=== PATIENT | male | born 1950 | race Caucasian/White ===

== ENCOUNTER → 2016-10-10 10:14 | Day surgery (SDC) | payer MEDICARE ==
--- NOTE | 2016-10-07 17:34 | HP ---
HISTORY AND PHYSICAL: DATE OF ADMISSION: 10/10/16 AGE: 66 years, male. ADMITTING DIAGNOSES: 1. Gross hematuria. 2. Bilateral renal calculi. 3. Calculus, left proximal ureter. PLANNED PROCEDURE: Shockwave lithotripsy of left renal calculus and left stent insertion. SURGEON: Pastor Blackwell MD. HISTORY OF PRESENT ILLNESS: Moises Woodard is a 66-year-old gentleman who has had gross hematuria for the last several days. He has a history of recurrent renal calculi and was noted to have bilateral renal calculi in addition to a 3 mm calculus in the left proximal ureter. PAST MEDICAL HISTORY: Significant for: 1. Gout. 2. Hypertension. 3. Kidney stones. PAST SURGICAL HISTORY: Significant for cervical spine surgery. MEDICATIONS: 1. Allopurinol 100 mg 2 tablets daily. 2. Metoprolol 100 mg a day. 3. Valsartan-hydrochlorothiazide 160-12.5, 1 tablet daily. 4. Multiple vitamins and supplements. ALLERGIES: No known drug allergies. FAMILY HISTORY: Positive for kidney stones (father and brother). SMOKING HISTORY: He is a nonsmoker. PHYSICAL EXAMINATION GENERAL: Reveals a pleasant healthy appearing middle-aged gentleman. VITAL SIGNS: Blood pressure is 138/90, pulse 64 per minute, temperature 98.1. LUNGS: Clear bilaterally. CARDIOVASCULAR: Regular rate and rhythm. S1 and S2. ABDOMEN: Soft with mild bilateral flank tenderness. IMPRESSION: A 66-year-old gentleman with gross hematuria and bilateral renal calculi and a calculus in the left proximal ureter. PLAN: The plan for 10/10/16 is for shockwave lithotripsy of the left renal calculus and left stent insertion. He will require treatment of the right renal calculi at a later date also. CC: Dr. Polk; Pastor Blackwell MD* [id number]/[facility] #: [id number] [facility]
[~2016-10-10 10:14] MED LIST: Furosemide IV* 10 MG/ML 2 ML VIAL (20 MG) ONE; Iohexol 180 (CONTRAST) 10 ML SDV IV ONE; Lidocaine 2% PF* 5 ML VIAL ONE; Midazolam* 1 MG/ML 2 ML VIAL (2 MG) ONE; Propofol* 10 MG/ML 20 ML BTL IV PUSH ONE; cefTRIAXone(*) 2 GM ADDV.VIAL IVPB ONE; fentaNYL* 50 MCG/ML 2 ML VIAL (100 MCG VIAL) ONE
--- NOTE | 2016-10-10 11:07 | RAD ---
INDICATION: Lithotripsy, renal calculi. COMPARISON: Comparison is made with a prior KUB series and CT of the abdomen and pelvis from October 07, 2016. TECHNIQUE: Frontal supine films of the abdomen were obtained. FINDINGS: The small bowel and colon appear nondistended. There are multiple bilateral renal calculi measuring up to 7 mm on the right side and 8 mm on the left side. The previously noted possible faint left ureteral calculus is not visualized. IMPRESSION: BILATERAL RENAL CALCULI.
[2016-10-10 17:50] VITALS: BP 140/86
--- NOTE | 2016-10-11 10:33 | OP ---
DATE OF OPERATION: 10/10/16 - SDS DATE OF : [birth year] - AGE: 66 years, SEX: Male. SURGEON: Pastor Blackwell MD ANESTHESIOLOGIST: Julio Heaton DO ANESTHESIA: General. PRE-OP DIAGNOSIS: Bilateral renal calculi. POST-OP DIAGNOSIS: Bilateral renal calculi. OPERATIVE PROCEDURE: Shock wave lithotripsy of left renal calculi. COMPLICATIONS: None. POSTOPERATIVE CONDITION: Stable. INDICATIONS: Moises Woodard is a 66-year-old gentleman who was evaluated for gross hematuria. This turned out to be secondary to a small calculus in the left proximal ureter, which he subsequently passed. He was also noted to have bilateral renal calculi and is now being brought in for shock wave lithotripsy of left renal calculi. At some point in the next month or two, he will require treatment of the right renal calculi also. I have discussed the procedure of lithotripsy including possible risks of bleeding, infection, incomplete fragmentation, and possible injury to the kidney in detail. DESCRIPTION OF PROCEDURE: After induction of general anesthesia, the patient was placed on the lithotripsy table in a supine position. There were two calculi in the [id number] pole of the left kidney and these were targeted with the fluoroscopic imaging and shock wave lithotripsy was commenced at a rate of 60 shocks per minute. After the initial 300 shocks, there was pause in lithotripsy for several minutes to minimize any potential trauma to the kidney. Lithotripsy was then resumed and periodic imaging revealed good localization and fragmentation and a total of 1800 shocks were administered. The patient tolerated the procedure satisfactorily and was transferred back to the recovery area in stable condition. CC: Dr. Polk* [id number]/[facility] #: [id number] [facility] SYSTEM[facility]
== END | disposition home or self-care (01) ==
LOC: OR 10:14
PROVIDERS: ATTEND Urology
DX: N20.0 Calculus of kidney (principal); R31.0 Gross hematuria; I10 Essential (primary) hypertension
CPT/HCPCS: 74000; J0696; J1940; J2250; J2704; J3010

== ENCOUNTER 2017-10-11 11:17 | Observation (INO) | payer MEDICARE ==
--- OUTSIDE RECORDS SUMMARY | 2017-10-11 11:43 | XMS REPORT ---
:1950 External Reference #:[id number] Author Organization [facility] Address [address] [address] Phone [phone] Care Team Providers Name Role Phone Rocky Polk MD Primary Care Physician Unavailable Payers Type Date Identification Numbers Payment Provider Subscriber Medicare Primary Policy Number: [id number] Medicare Edna Woodard PayID: [id number] [address] [place] [address] Medigap Part B Expires: 2016 Policy Number: Medicaid Edna Woodard [id number] Group Name: 1 [address] PayID: [id number] [place] [address] Commercial Effective: 2015 Policy Number: Rigoberto Woodard [id number] Expires: 2016 Group Name: [id number] [address] PayID: [id number] [place] [address] Problems Date Description Provider Status Onset: 01/06/2016 Disturbance in sleep behavior Darek Obando M.D. Active Onset: 02/05/2016 Gout Rocky Polk M.D. Active Onset: 04/11/2016 Obstructive sleep apnea syndrome Nat Henry MD Active Onset: 08/24/2016 Obesity Nat Henry MD Active Onset: 10/04/2016 Hematuria syndrome Rocky Polk M.D. Active Onset: 10/06/2016 Dyspnea Rocky Polk M.D. Active Onset: 10/20/2016 Essential hypertension Rocky Polk M.D. Active Onset: 10/20/2016 Kidney stone Rocky Polk M.D. Active Onset: 03/14/2017 Disorder of skin AND/OR subcutaneous Rocky Polk M.D. Active tissue Onset: 10/20/2016 Shoulder joint pain Rocky Polk M.D. Active Onset: 10/20/2016 Low back pain Rocky Polk M.D. Active Family History Date Family Member(s) Problem(s) Comments General Hypertension Father Hypertension Mother due to Leukemia () Mother Leukemia Siblings 1 hypertension Siblings Brother w/"blood issues" Siblings 2 Social History Type Date Description Comments Marital Status Lives With Family Occupation Disabled Cigarette Use Never Smoked Cigarettes ETOH Use 04/15/2016 Denies alcohol use Smoking Patient has never smoked Recreational Drug Use Denies Drug Use Daily Caffeine Does Not Consume Caffeine Exercise Type/Frequency Exercises regularly General Hx Text Do you follow up special diet : no Do you have problems with snoring, daytime fatigue: CPAP Machine care followed by Dr. Henry [facility] Provider, daytime fatigue- no. Allergies, Adverse Reactions, Alerts Date Description Reaction Status Severity Comments 11/20/2015 NKDA active Medications Medication Date Status Form Strength Qnty SIG Indications Ordering Provider Tony ac 11/24 Active Syrup 100-10mg/ 118ml take 5-10 J01.90 Luis 5ML milliliters EDEL Paula every 4-6 hours as needed for cough. Areds 08/23 Active as directed [place] 08/12 Active 1 cap po Luis Reaver daily Chai, [employer] & Quercetin Allopurinol 02/04 Active Tablets 100mg 180ta 2 by mouth M10.9 Rocky /2015 bs every day Jay Polk Metoprolol 12/08 Active Tablets ER 100mg 30tab 1 by mouth I10 [place] Succinate ER /2015 24HR s every day Jay Polk Calcium 11/19 Active Tablets ER 600-40-50 1 by mouth [place] 1200+D3 24HR 0mg-mg-Un every day Felicitas de guzman M.D. Turmeric Active Capsules 500mg 1 by mouth Unknown Curcumin every day Complex Vitamin B Active Tablets 1 by mouth Unknown Complex / every day [place] Boost Active Powder 1 scoop daily Unknown Preservision Active Capsules Areds 2 take one cap Unknown Areds 2 in the moring and one cap in the evening Mucinex Active prn Unknown Multi-Symptom / Probiotic Active Capsules 1 by mouth Unknown every day Riley 3, Epa, Active 1 cap po Unknown Dha daily Acetaminophen Active Tablets 500mg 2 tabs 3 Unknown / times daily [place] Brain Active 1 cap po Unknown Boost ( Memory daily Function Aid) Vitamin D3 Active 1/ Unknown Complete dropperfull robe [place] Barely Active Powder 1 scoop daily Unknown Cpap Active Device used at home Unknown Stone Free Active Unknown Valsartan-Hydr Active Tablets 160-12.5m 30tab 1 by mouth [place] ochlorothiazid /0000 g s every day Felicitas morgan M.D. Valsartan-Hydr Active Tablets 160-12.5m 30tab 1 by mouth Rocky ochlorothiazid /0000 g s every day Felicitas morgan M.D. Ibuprofen 01/19 Hx Tablets 600mg 90tab three times a M25.561 Rocky /2016 s day Felicitas Santana M.D. 03/14 Ventolin HFA 12/16 Hx Aerosol 108(90Bas 8gm 2 puffs by Luis /2016 eddie) mouth four EDEL Paula - mcg/Act times a day 01/06 as needed Doxycycline 11/24 Hx Capsules 100mg 20cap one tablet J01.90 Luis Hyclate s twice daily EDEL Paula - for 10 days. 12/04 Ciprofloxacin 10/06 Hx Tablets 500mg 20tab twice a day ( R31.9 Rocky HCL s Finished) Felicitas Santana M.D. 11/21 Lignans-Flax 08/12 Hx daily Luis Augustine Chai [employer] - 03/14 Amoxicillin/Cl 08/12 Hx Tablets 875-125mg 20tab take one J01.90 Luis avulanate s tablet q12 EDEL Paula Potassium - hours for 10 Benzonatate 08/12 Hx Capsules 200mg 30cap by mouth J01.90 Luis s three times a Chai, [employer] - day as needed 08/12 for cough Fluticasone 08/12 Hx Suspension 50mcg/Act 16gm 2 sprays each J01.90 Luis Propionate nostril qd. x Chai, [employer] - 2 weeks 03/14 Tussionex 08/12 Hx Suer 10-8mg/5M 115ml 5ml twice J01.90 Luis Pennkinetic L daily as Chia, [employer] Extended - needed for Release 11/24 cough Tdap 06/30 Hx 1unit 1 dose [place] ania intramuscular Felicitas Santana M.D. 08/12 Colcrys 04/15 Hx Tablets 0.6mg 31tab take 2 M10.9 Jose G s tablets by Noemy Ch, - mouth on day M.D.,[facility] 05/11 1 then tablet daily Doxycycline 04/15 Hx Capsules 100mg 14cap twice a day J20.9 Jose G Hyclate s by mouth Noemy Ch, - M.D.,[facility] 04/22 Benzonatate 04/15 Hx Capsules 200mg 30cap by mouth J20.9 Jose G s three times a Noemy Ch, - day as needed M.D.,[facility] 05/11 Cheratussin ac 04/01 Hx Syrup 100-10mg/ 118ml take 5-10 J06.9 Luis 5ML milliliters Chai, [employer] - every 4-6 04/08 hours needed for cough. Azelastine HCL 04/01 Hx Solution 0.1% 30ml spray 2 spray J06.9 Luis (Nasal) in each Chai, [employer] - nostril two 03/14 times a day as needed Azithromycin 04/01 Hx Tablets 250mg 6tabs 2 tabs by J06.9 Luis mouth every Chai, [employer] - day x1 day, 1 04/06 tab by mouth /2015 every day x 4 days Amlodipine 02/01 Hx Tablets 10mg 30tab 1 by mouth [place] Besylate s every day Felicitas Santana M.D. 03/14 Prednisone 01/25 Hx Tablets 10mg 20tab 5tabx 2days,4 M25.562 [place] s tabx1 day Madaira - 3tabJay navarro 02/04 day,2tabx day,1tabxday. Hydrocodone-Ac 01/25 Hx Tablets 5-325mg 20tab 1 tab every M25.562 [place] etamin s 12h as needed Felicitas Santana M.D. 05/11 Allopurinol 12/30 Hx Tablets 100mg 90tab 1 by mouth Rocky s every day Felicitas Santana M.D. 04/15 Colchicine 12/24 Hx Tablets 0.6mg 10tab 2 tabnow then M10.9 s twice daily Felicitas Santana M.D. 02/04 Amlodipine 00 Hx Tablets 10mg 30tab 1 by mouth [place] Bes s every day Felicitas Santana M.D. 12/08 Fish Oil Hx Capsules 1000mg-Un 1 capsule Unknown /0000 it - 05/11 Magnesium 00 Hx Capsules 300mg otc once a Unknown /0000 day - 12/08 Calcium 600+D Hx Tablets 600-200mg 1 by mouth Unknown /0000 -Unit twice a day - 12/08 Flaxseed Oil 00 Hx Capsules 1000mg 1 by mouth Unknown /0000 every day - 05/11 Biola 00/ Hx 1 tablet po Unknown Trim And Fit /0000 as needed - 03/14 Coricidin HBP 00/ Hx Misc prn Unknown Day & /0000 Nightmulti-Sym - ptom Cold 03/14 Medications Administered in Office Medication Date Status Form Strength Qnty SIG Indications Ordering Provider Technetium TC Administered Injection Bhargav Villegas 99M 017 DO Frank Tetrofosmin, FACC Per Unit Dose Up To 40 Millicuries Immunizations CPT Code Status Date Vaccine Reaction Lot # [id number] Given 07/07/2016 Tdap - [id number] Tetanus/Diptheria/Acellular Pertussis [id number] Given 04/15/2016 Influenza Virus Vaccine, no reaction, no [id number] Quadrivalent, Split, complaints, pt tolerated Preservative Free well Vital Signs Date Vital Result Comment 10/11/2017 Height 72 inches 6'0" Weight 239.50 lb Heart Rate 63 /min BP Systolic Sitting 130 mmHg BP Diastolic Sitting 80 mmHg Body Temperature 97.4 F O2 % BldC Oximetry 96 % BMI (Body Mass Index) 32.5 kg/m2 09/04/2017 Weight 220.00 lb Heart Rate 54 /min BP Systolic 132 mmHg BP Diastolic 80 mmHg Body Temperature 97.7 F O2 % BldC Oximetry 96 % 05/17/2017 Height 72 inches 6'0" Weight 225.00 lb Heart Rate 58 /min BP Systolic 120 mmHg BP Diastolic 76 mmHg Body Temperature 98.0 F O2 % BldC Oximetry 99 % BMI (Body Mass Index) 30.5 kg/m2 03/14/2017 Height 72 inches 6'0" Weight 237.00 lb Heart Rate 60 /min BP Systolic 134 mmHg BP Diastolic 82 mmHg Body Temperature 97.5 F O2 % BldC Oximetry 96 % BMI (Body Mass Index) 32.1 kg/m2 01/19/2017 Weight 241.25 lb Heart Rate 59 /min BP Systolic Sitting 140 mmHg BP Diastolic Sitting 82 mmHg Body Temperature 98.3 F O2 % BldC Oximetry 97 % 01/10/2017 Height 72 inches 6'0" Weight 243.00 lb Heart Rate 72 /min BP Systolic Sitting 130 mmHg BP Diastolic Sitting 86 mmHg Respiratory Rate 16 /min O2 % BldC Oximetry 96 % room air BMI (Body Mass Index) 33.0 kg/m2 11/24/2016 Heart Rate 63 /min BP Systolic Sitting 132 mmHg BP Diastolic Sitting 82 mmHg Body Temperature 98.2 F O2 % BldC Oximetry 95 % 11/21/2016 Weight 247.00 lb Heart Rate 66 /min BP Systolic Sitting 142 mmHg BP Diastolic Sitting 88 mmHg Respiratory Rate 15 /min Body Temperature 98.8 F O2 % BldC Oximetry 97 % 11/02/2016 Height 72 inches 6'0" Weight 247.00 lb Heart Rate 73 /min Respiratory Rate 16 /min Pain Level 0 O2 % BldC Oximetry 96 % BMI (Body Mass Index) 33.5 kg/m2 10/21/2016 Height 71.25 inches 5'11.25" Weight 246.00 lb without shoes Heart Rate 64 /min BP Systolic 160 mmHg Rue lg cuff BP Diastolic 100 mmHg Rue lg cuff BP Systolic Sitting 160 mmHg Lue lg cuff BP Diastolic Sitting 110 mmHg Lue lg cuff BP Systolic Standing 152 mmHg Lue lg cuff BP Diastolic Standing 100 mmHg Lue lg cuff Respiratory Rate 16 /min BMI (Body Mass Index) 34.1 kg/m2 Ejection Fraction 55-60% date 01/04/2016 ECHO 10/20/2016 Weight 248.50 lb Heart Rate 100 /min BP Systolic Sitting 110 mmHg BP Diastolic Sitting 86 mmHg Body Temperature 97.7 F O2 % BldC Oximetry 96 % 10/06/2016 Weight 248.00 lb Heart Rate 66 /min BP Systolic Sitting 132 mmHg BP Diastolic Sitting 80 mmHg Body Temperature 98.1 F O2 % BldC Oximetry 97 % 10/04/2016 Weight 247.50 lb Heart Rate 66 /min BP Systolic Sitting 138 mmHg BP Diastolic Sitting 88 mmHg Body Temperature 98.3 F O2 % BldC Oximetry 96 % 09/13/2016 Weight 246.38 lb Heart Rate 67 /min BP Systolic Sitting 114 mmHg BP Diastolic Sitting 70 mmHg Body Temperature 98.1 F O2 % BldC Oximetry 97 % 08/24/2016 Weight 242.00 lb Heart Rate 72 /min BP Systolic Sitting 134 mmHg BP Diastolic Sitting 80 mmHg Respiratory Rate 14 /min O2 % BldC Oximetry 97 % 08/12/2016 Weight 246.00 lb Heart Rate 80 /min BP Systolic Sitting 132 mmHg BP Diastolic Sitting 88 mmHg Respiratory Rate 16 /min Body Temperature 98.1 F O2 % BldC Oximetry 94 % 05/24/2016 Height 71 inches 5'11" Weight 234.00 lb Heart Rate 62 /min BP Systolic 132 mmHg BP Diastolic 85 mmHg Respiratory Rate 14 /min O2 % BldC Oximetry 98 % BMI (Body Mass Index) 32.6 kg/m2 05/11/2016 Height 71 inches 5'11" Weight 234.00 lb Heart Rate 79 /min BP Systolic 136 mmHg BP Diastolic 83 mmHg Body Temperature 98.2 F O2 % BldC Oximetry 97 % BMI (Body Mass Index) 32.6 kg/m2 04/15/2016 Weight 228.00 lb Heart Rate 69 /min BP Systolic Sitting 133 mmHg BP Diastolic Sitting 86 mmHg Body Temperature 98.5 F O2 % BldC Oximetry 97 % 04/11/2016 Height 71 inches 5'11" Weight 227.00 lb Heart Rate 71 /min BP Systolic Sitting 130 mmHg BP Diastolic Sitting 76 mmHg Respiratory Rate 16 /min O2 % BldC Oximetry 96 % BMI (Body Mass Index) 31.7 kg/m2 04/01/2016 Weight 221.00 lb with shoes Heart Rate 80 /min BP Systolic Sitting 122 mmHg BP Diastolic Sitting 74 mmHg Body Temperature 97.7 F O2 % BldC Oximetry 98 % 02/05/2016 Weight 220.00 lb Heart Rate 77 /min BP Systolic Sitting 119 mmHg BP Diastolic Sitting 73 mmHg Body Temperature 99.7 F 01/26/2016 Height 71 inches 5'11" Weight 221.25 lb Heart Rate 60 /min BP Systolic Sitting 120 mmHg BP Diastolic Sitting 82 mmHg Respiratory Rate 14 /min Body Temperature 98.6 F Pain Level 4 Lle BMI (Body Mass Index) 30.9 kg/m2 01/06/2016 Height 71 inches 5'11" Weight 223.12 lb Heart Rate 65 /min BP Systolic Sitting 128 mmHg BP Diastolic Sitting 76 mmHg Respiratory Rate 14 /min O2 % BldC Oximetry 98 % BMI (Body Mass Index) 31.1 kg/m2 Neck Circumference in inches 16.5 12/25/2015 Height 71 inches 5'11" Weight 229.00 lb Heart Rate 82 /min BP Systolic Sitting 124 mmHg BP Diastolic Sitting 80 mmHg BMI (Body Mass Index) 31.9 kg/m2 12/09/2015 Height 71 inches 5'11" Weight 229.00 lb Heart Rate 88 /min BP Systolic Sitting 120 mmHg BP Diastolic Sitting 78 mmHg Body Temperature 99.7 F O2 % BldC Oximetry 97 % BMI (Body Mass Index) 31.9 kg/m2 11/20/2015 Height 71 inches 5'11" Weight 224.00 lb Heart Rate 77 /min BP Systolic Sitting 143 mmHg BP Diastolic Sitting 84 mmHg Body Temperature 97.5 F BMI (Body Mass Index) 31.2 kg/m2 Results Test Date Test Result H/L Range Note Comp Metabolic Panel 02/28/2017 Sodium 141 mmol/L 133-145 Potassium 3.8 mmol/L 3.5-5.0 Chloride 106 mmol/L 101-111 Co2 Carbon Dioxide 30 mmol/L 22-32 Anion Gap 5 mmol/L 2-11 Glucose 100 mg/dL 70-100 Blood Urea Nitrogen 21 mg/dL 6-24 Creatinine 1.00 mg/dL 0.67-1.17 BUN/Creatinine Ratio 21.0 High 8-20 Calcium 9.1 mg/dL 8.6-10.3 Total Protein 6.8 g/dL 6.4-8.9 Albumin 4.3 g/dL 3.2-5.2 Globulin 2.5 g/dL 2-4 Albumin/Globulin Ratio 1.7 1-3 Total Bilirubin 0.50 mg/dL 0.2-1.0 Alkaline Phosphatase 68 U/L 34-104 Alt 30 U/L 7-52 Ast 22 U/L 13-39 Egfr Non- 75.2 >60 Egfr 96.7 >60 1 Lipid Profile (Trig/Chol/HDL) 02/28/2017 Triglycerides 119 mg/dL 2 Cholesterol 116 mg/dL 3 HDL Cholesterol 34.2 mg/dL 4 LDL Cholesterol 58 mg/dL 5 Laboratory test finding 10/21/2016 B-Type Natriuretic Peptide 17 pg/mL 6 BNP Laboratory test finding 10/07/2016 Surgical Pathology SEE RESULT BELOW 7 Stone Analysis 10/07/2016 Kidney Stone Source Passed Stone Kidney Stone 1st Constituent See Comment 8 Kidney Stone 2nd Constituent See Comment 9 Basic Metabolic Panel 10/06/2016 Sodium 139 mmol/L 133-145 Potassium 3.9 mmol/L 3.5-5.0 Chloride 101 mmol/L 101-111 Co2 Carbon Dioxide 32 mmol/L 22-32 Anion Gap 6 mmol/L 2-11 Glucose 82 mg/dL 70-100 Blood Urea Nitrogen 15 mg/dL 6-24 Creatinine 1.00 mg/dL 0.67-1.17 BUN/Creatinine Ratio 15.0 8-20 Calcium 10.6 mg/dL High 8.6-10.3 Egfr Non- 75.2 >60 Egfr 96.7 >60 10 Inr/Protime 10/06/2016 Inr 0.94 0.89-1.11 CBC Auto Diff 10/06/2016 White Blood Count 6.6 10^3/uL 3.5-10.8 Red Blood Count 5.00 10^6/uL 4.0-5.4 Hemoglobin 15.7 g/dL 14.0-18.0 Hematocrit 46 % 42-52 Mean Corpuscular Volume 92 fL 80-94 Mean Corpuscular Hemoglobin 31 pg 27-31 Mean Corpuscular HGB Conc 34 g/dL 31-36 Red Cell Distribution Width 14 % 10.5-15 Platelet Count 221 10^3/uL 150-450 Mean Platelet Volume 9 um3 7.4-10.4 Abs Neutrophils 4.4 10^3/uL 1.5-7.7 Abs Lymphocytes 1.4 10^3/uL 1.0-4.8 Abs Monocytes 0.7 10^3/uL 0-0.8 Abs Eosinophils 0.2 10^3/uL 0-0.6 Abs Basophils 0.1 10^3/uL 0-0.2 Abs Nucleated RBC 0 10^3/uL Granulocyte % 66.1 % 38-83 Lymphocyte % 20.5 % Low 25-47 Monocyte % 9.9 % High 1-9 Eosinophil % 2.4 % 0-6 Basophil % 1.1 % 0-2 Nucleated Red Blood Cells % 0 Laboratory test finding 10/04/2016 Cytology Non-Cma SEE RESULT BELOW 11 Urinalysis Profile 10/04/2016 Urine Color Yellow Urine Appearance Cloudy Urine Specific [place] 1.008 Low 1.010-1.030 Urine pH 7.0 5-9 Urine Urobilinogen Negative Negative Urine Ketones Negative Negative Urine Protein Negative Negative Urine Leukocytes Negative Negative Urine Blood 3+ Negative Urine Nitrite Negative Negative Urine Bilirubin Negative Negative Urine Glucose Negative Negative Urine White Blood Cell Absent Absent Urine Red Blood Cell 3+(>10/hpf) Absent Urine Bacteria Absent Absent Ua Routine 10/04/2016 Ua Specific [place] 1000 Ua PH 7 Ua Color aaron Ua Appera clear Ua WBC neg Ua Protein neg Ua Glucose neg Ua Ketones neg Ua Bilirubin neg Ua Urobilinogen neg Ua Nitrite neg Ua Occult Blood large+++ Laboratory test finding 05/11/2016 Uric Acid 5.3 mg/dL 4.4-7.6 CBC Auto Diff 05/11/2016 White Blood Count 6.4 10^3/uL 3.5-10.8 Red Blood Count 4.79 10^6/uL 4.0-5.4 Hemoglobin 14.7 g/dL 14.0-18.0 Hematocrit 44 % 42-52 Mean Corpuscular Volume 91 fL 80-94 Mean Corpuscular Hemoglobin 31 pg 27-31 Mean Corpuscular HGB Conc 34 g/dL 31-36 Red Cell Distribution Width 14 % 10.5-15 Platelet Count 200 10^3/uL 150-450 Mean Platelet Volume 9 um3 7.4-10.4 Abs Neutrophils 4.4 10^3/uL 1.5-7.7 Abs Lymphocytes 1.3 10^3/uL 1.0-4.8 Abs Monocytes 0.5 10^3/uL 0-0.8 Abs Eosinophils 0.1 10^3/uL 0-0.6 Abs Basophils 0 10^3/uL 0-0.2 Abs Nucleated RBC 0.01 10^3/uL Granulocyte % 67.9 % 38-83 Lymphocyte % 20.9 % Low 25-47 Monocyte % 8.2 % 1-9 Eosinophil % 2.2 % 0-6 Basophil % 0.8 % 0-2 Nucleated Red Blood Cells % 0.1 Laboratory test finding 05/11/2016 TSH (Thyroid Stim Horm) 1.01 mcIU/mL 0.34-5.60 Vitamin B12 277 pg/mL 180-914 12 Vitamin D Total 25(Oh) 46.1 ng/mL 30-50 Laboratory test finding 02/09/2016 Uric Acid 5.5 mg/dL 4.4-7.6 CBC Auto Diff 01/26/2016 White Blood Count 8.1 10^3/uL 3.5-10.8 Red Blood Count 4.75 10^6/uL 4.0-5.4 Hemoglobin 14.3 g/dL 14.0-18.0 Hematocrit 42 % 42-52 Mean Corpuscular Volume 89 fL 80-94 Mean Corpuscular Hemoglobin 30 pg 27-31 Mean Corpuscular HGB Conc 34 g/dL 31-36 Red Cell Distribution Width 14 % 10.5-15 Platelet Count 243 10^3/uL 150-450 Mean Platelet Volume 10 um3 7.4-10.4 Abs Neutrophils 6.2 10^3/uL 1.5-7.7 Abs Lymphocytes 1.1 10^3/uL 1.0-4.8 Abs Monocytes 0.7 10^3/uL 0-0.8 Abs Eosinophils 0.2 10^3/uL 0-0.6 Abs Basophils 0 10^3/uL 0-0.2 Abs Nucleated RBC 0.01 10^3/uL Granulocyte % 75.9 % 38-83 Lymphocyte % 13.6 % Low 25-47 Monocyte % 8.1 % 1-9 Eosinophil % 1.9 % 0-6 Basophil % 0.5 % 0-2 Nucleated Red Blood Cells % 0.1 Laboratory test finding 01/26/2016 Erythrocyte Sed Rate 39 mm/Hr High 0- 20 Uric Acid 6.5 mg/dL 4.4-7.6 Anti Nuclear Antibody 0.6 U 13 Rheumatoid Factor <15 IU/mL <15 14 Laboratory test 12/31/2015 Uric Acid 7.8 mg/dL High 4.4-7.6 finding Laboratory test 12/31/2015 Factor V Activity 98 % 70 - 165 15 finding Testosterone Free 11/23/2015 Free Testosterone 5.03 ng/dL 3.67-13.9 16, 17 & Total ng/dl Testosterone 296 ng/dL 240-950 16, 18 Laboratory test finding 11/23/2015 PSA Screening 1.592 ng/mL 0-4.000 19 Lipid Profile (Trig/Chol/HDL) 11/23/2015 Triglycerides 115 mg/dL 20 Cholesterol 136 mg/dL 21 HDL Cholesterol 40.5 mg/dL 22 LDL Cholesterol 73 mg/dL 23 Comp Metabolic Panel 11/23/2015 Sodium 140 mmol/L 133-145 Potassium 3.9 mmol/L 3.5-5.0 Chloride 105 mmol/L 101-111 Co2 Carbon Dioxide 30 mmol/L 22-32 Anion Gap 5 mmol/L 2-11 Glucose 101 mg/dL High 70-100 Blood Urea Nitrogen 23 mg/dL 6-24 Creatinine 0.95 mg/dL 0.67-1.17 BUN/Creatinine Ratio 24.2 High 8-20 Calcium 9.6 mg/dL 8.6-10.3 Total Protein 7.5 g/dL 6.4-8.9 Albumin 4.5 g/dL 3.2-5.2 Globulin 3.0 g/dL 2-4 Albumin/Globulin Ratio 1.5 1-3 Total Bilirubin 0.30 mg/dL 0.2-1.0 Alkaline Phosphatase 84 U/L 34-104 Alt 27 U/L 7-52 Ast 22 U/L 13-39 Egfr Non- 80.1 >60 Egfr 103.0 >60 24 1 Because ethnic data is not always readily available, this report includes an eGFR for both -Americans and non- Americans. The National Kidney Disease Education Program (NKDEP) does not endorse the use of the MDRD equation for patients that are not between the ages of 18 and 70, are , have extremes of body size, muscle mass, or nutritional status, or are non- or non-. According to the National Kidney Foundation, irrespective of diagnosis, the stage of the disease is based on the level of kidney function: Stage Description GFR(mL/min/1.73 m(2)) 1 Kidney damage with normal or decreased GFR 90 2 Kidney damage with mild decrease in GFR 60-89 3 Moderate decrease in GFR 30-59 4 Severe decrease in GFR 15-29 5 Kidney failure <15 (or dialysis) 2 Desirable <150 Borderline high 150-199 High 200-499 Very High >500 3 Desirable <200 Borderline high 200-239 High >239 4 Low <40 Desirable: 40-60 High: >60 5 Desirable: <100 mg/dL Near Optimal: 100-129 mg/dL Borderline High: 130-159 mg/dL High: 160-189 mg/dL Very High: >189 mg/dL 6 >100 to <200 pg/mL: likely compensated congestive heart failure (CHF) 200 to 400 pg/mL: likely moderate CHF >400 pg/mL: likely moderate to severe CHF 7 SEE RESULT BELOW Name: EDNA WOODARD : [address]: Rocky Polk MD Acct: [id number] Unit: [id number] AGE: 66 Location: [facility] Re10/07/16 SEX: M Status: REG REF SPEC: [id number] JEROD: 10/07/16-[address] [facility] [address]: Rocky Polk MD REQ: [id number] RECD: 10/20/16 STATUS: SOUT _ ORDERED: LEVEL I FINAL DIAGNOSIS Site not specified, lithotomy: Calculus (Gross diagnosis). CLINICAL HISTORY No history given GROSS DESCRIPTION The specimen is received fresh labeled, Stone Analysis, and consists of a 0.4 x 0.2 x 0.2 cm pardo-brown hard irregular fragment consistent with a kidney stone. The specimen is submitted for chemical analysis. Received separately in the same container is a 0.5 x 0.2 x 0.1 cm pardo translucent hard fragment. Per established hospital medical staff protocol, no tissue is submitted. Gross only. Signed (signature on file) Cecille Baires MD 01/30 1406 END OF REPORT * ML=Testing performed at Main Lab DEPARTMENT OF PATHOLOGY, [address] [place] [address] Jerry Mullen M.D. Director [facility] # [id number] RESULT: 80% Calcium oxalate monohydrate 9 RESULT: 20% Calcium phosphate (apatite) ADDITIONAL INFORMATION This test was developed and its performance characteristics determined by [facility] in a manner consistent with CLIA requirements. This test has not been cleared or approved by the U.S. Food and Drug Administration. Test Performed by: [facility] - [address] [address] Because ethnic data is not always readily available, this report includes an eGFR for both -Americans and non- Americans. The National Kidney Disease Education Program (NKDEP) does not endorse the use of the MDRD equation for patients that are not between the ages of 18 and 70, are , have extremes of body size, muscle mass, or nutritional status, or are non- or non-. According to the National Kidney Foundation, irrespective of diagnosis, the stage of the disease is based on the level of kidney function: Stage Description GFR(mL/min/1.73 m(2)) 1 Kidney damage with normal or decreased GFR 90 2 Kidney damage with mild decrease in GFR 60-89 3 Moderate decrease in GFR 30-59 4 Severe decrease in GFR 15-29 5 Kidney failure <15 (or dialysis) 11 SEE RESULT BELOW Name: LAZAROEDNA L : [address]: Rocky Polk MD Acct: [id number] Unit: [id number] AGE: 66 Location: [facility] Re10/04/16 SEX: M Status: REG REF SPEC: [id number] JEROD: 10/04/[address]: Rocky Polk MD REQ: [id number] RECD: 10/04/163536 STATUS: SOUT _ ORDERED: THIN PREP NON G COMMENTS: no tracking # FINAL DIAGNOSIS Urine, voided: --Negative for malignant cells. --Blood and inflammation. URINE VOID CLINICAL HISTORY hematuria GROSS DESCRIPTION 70 mls cloudy yellow fluid. Signed (signature on file) Jerry Mullen MD 1331 END OF REPORT * ML=Testing performed at Main Lab DEPARTMENT OF PATHOLOGY, [address] [place] [address] Jerry Mullen M.D. Director [facility] # [id number] 12 Normal Range 180 to 914 Indeterminate Range 145 to 180 Deficient Range <145 13 REFERENCE VALUE <=1.0 (Negative) Test Performed by: [place] [address] Desktop Manager: Jeremiah Noble II, M.D., Ph.D. 14 Test Performed by: [place] [address] Desktop Manager: Jeremiah Noble II, M.D., Ph.D. 15 Test Performed by: [place] [address] Desktop Manager: Jeremiah Noble II, M.D., Ph.D. 16 [id number] ADDITIONAL INFORMATION Testing performed by [facility]. 18 ADDITIONAL INFORMATION Testing performed by Liquid Chromatography-Tandem Mass Spectrometry (LC-MS/MS). Test Performed by: [address] [address] Desktop Manager: Jeremiah Noble II, M.D., Ph.D. 19 Serum levels of PSA measured using the Tello Valeria DXI Hybritech immunoassay should not be interpreted as absolute evidence of the presence or absence of disease. The PSA value should be used in conjunction with other pertinent clinical diagnostic procedures. The values obtained with different assay methods or kits cannot be used interchangeably. 20 Desirable <150 Borderline high 150-199 High 200-499 Very High >500 21 Desirable <200 Borderline high 200-239 High >239 22 Low <40 Desirable: 40-60 High: >60 23 Desirable: <100 mg/dL Near Optimal: 100-129 mg/dL Borderline High: 130-159 mg/dL High: 160-189 mg/dL Very High: >189 mg/dL 24 Because ethnic data is not always readily available, this report includes an eGFR for both -Americans and non- Americans. The National Kidney Disease Education Program (NKDEP) does not endorse the use of the MDRD equation for patients that are not between the ages of 18 and 70, are , have extremes of body size, muscle mass, or nutritional status, or are non- or non-. According to the National Kidney Foundation, irrespective of diagnosis, the stage of the disease is based on the level of kidney function: Stage Description GFR(mL/min/1.73 m(2)) 1 Kidney damage with normal or decreased GFR 90 2 Kidney damage with mild decrease in GFR 60-89 3 Moderate decrease in GFR 30-59 4 Severe decrease in GFR 15-29 5 Kidney failure <15 (or dialysis) Procedures Date CPT Code Description Status 11/10/2016 57183 Myocardial Perfusion Imaging Tomographic (Spect) Completed Multiple Studies 11/09/2016 07885 Stress Test Completed 11/09/2016 99140 Myocardial Perfusion Imaging Tomographic (Spect) Completed Multiple Studies 10/21/2016 00030 EKG Tracing & Interpretation Completed 10/06/2016 01839 EKG Tracing & Interpretation Completed 03/28/2016 81895 Polysomnography Sleep Staging 4+ Parameters Completed 01/04/2016 78169 ECHO Transthoracic, Real-Time 2D With Doppler And Color Completed Flow Encounters Type Date Location Provider CPT E/M Dx Office Visit 09/04/2017 2:00p [facility] Internal Medicine [place] [address] I10 - [place] Sean Thompson M10.9 Office Visit 03/28/2017 3:40p [facility] [place] [address] L82.1 B07.8 L91.8 L21.8 Office Visit 03/14/2017 11:00a [facility] Internal Medicine [place] M.D. [address] I[address] - [address] L98.9 Office Visit 01/19/2017 11:00a [facility] Internal Medicine [place] M.D. 929[address] I10 - [address] M10.9 M25.561 Office Visit 01/10/2017 1:45p [facility] [address] G47.33 Services Of [facility] E66.09 Z68.33 Office Visit 11/24/2016 2:20p [facility] [place] [address] J01.90 [place] Office Visit 11/21/2016 10:40a [facility] [place] [address] J06.9 [place] Office Visit 11/02/2016 10:45a [facility] [address] G47.33 Services Of [facility] E66.09 Office Visit 10/21/2016 1:00p [facility] [place] [address] R06.02 [facility] FACC G47.33 I10 R07.9 Office Visit 10/20/2016 9:40a [facility] Internal Medicine [place] M.D. [address]350 I10 - [address] M10.9 N20.0 M54.5 M25.512 Office Visit 10/06/2016 9:40a [facility] Internal [place] M.D. 13354 R31.9 Medicine - [address] R06.02 Office Visit 10/04/2016 1:40p [facility] Internal Medicine [place] [address] R31.9 - [address] M.Noemy Office Visit 09/13/2016 2:40p [facility] Internal Medicine [place], [address] M67.441 - [address] M.DJenny Office Visit 08/24/2016 9:30a [facility] [address] G47.33 Services Of [facility] E66.09 Office Visit 08/12/2016 11:20a [facility] [place] [address] J01.90 [place] Office Visit 05/24/2016 9:30a Pul[facility] [address] G47.33 Services Of [facility] Office Visit 05/11/2016 1:00p [facility] [place] [address] Z00.00 [place] I10 R53.83 M10.9 Z12.11 Office Visit 04/15/2016 2:40p [facility] Internal Medicine Jose G Ch, [address] M10.9 - [place] Sean MNicholas,FACP J20.9 Z23 Office Visit 04/11/2016 11:30a Pul[facility] [address] G47.33 Services Of [facility] Office Visit 04/01/2016 3:00p [facility] [place] [address] J06.9 [place] Office Visit 02/05/2016 4:00p [facility] Internal Medicine - [place], [address]22 M10.9 Sailaja Thompson H61.23 Office Visit 01/26/2016 8:00a [facility] Internal Medicine [place], [address] M25.562 - [place] Sean M.Noemy Office Visit 01/06/2016 2:00p Pulmonology And Sleep Darek Obando, 35640 G47.9 Services Of [facility] M.DJenny Office Visit 12/25/2015 2:00p [facility] Internal Medicine [place], [address] I10 - Sailaja Thompson I89.0 M10.9 F32.8 Office Visit 12/09/2015 1:00p [facility] Internal Medicine [place] M.D. 40198 I10 - [address] I89.0 R60.0 Office Visit 11/20/2015 2:00p [facility] Internal Medicine [place] M.D. 50154 I10 - [place] M54.16 F33.0 G47.30 Z13.1 Z13.220 Z12.5 F52.0 H61.23 Plan of Care Future Appointment(s):12/27/2017 1:40 pm - [place] M.D. at [facility]10/11/2017 - [place] M.D.I20.0 Unstable anginaComments:Intermittent chest pain posible unstable angina.Will sent patient to ER
[2017-10-11] MEDS ORDERED: NS 0.9% 1000 ML* 1,000 ML IV ONE (12:10)
[2017-10-11] MEDS ORDERED: Aspirin 81 mg CHEW TAB* 81 MG TAB.CHEW PO ONE (12:10)
[2017-10-11 12:35] LABS: ABS Basophils 0 10^3/ul (0-0.2); ABS Eosinophils 0.1 10^3/ul (0-0.6); ABS Lymphocytes 1.1 10^3/ul (1.0-4.8); ABS Monocytes 0.5 10^3/ul (0-0.8); ABS Neutrophils 4.5 10^3/ul (1.5-7.7); ABS Nucleated RBC 0 10^3/ul; Eosinophil % 1.9 % (0-6); Hematocrit 44 % (42-52); Hemoglobin 15.1 g/dl (14.0-18.0); Lymphocyte % 18.1 % (25-47); Mean Corpuscular HGB Conc 35 g/dl (31-36); Mean Corpuscular Hemoglobin 32 pg (27-31); Mean Corpuscular Volume 94 fL (80-94); Mean Platelet Volume 8.6 um3 (7.4-10.4); Nucleated Red Blood Cells % 0.1; Platelet Count 186 10^3/ul (150-450); Red Blood Count 4.68 10^6/ul (4.0-5.4); Red Cell Distribution Width 13 % (10.5-15); White Blood Count 6.3 10^3/ul (3.5-10.8)
[2017-10-11 12:46] LABS: INR 0.92 (0.77-1.02)
[2017-10-11 12:56] LABS: EGFR Non-African American 79.6 (>60)
--- NOTE | 2017-10-11 13:08 | RAD ---
INDICATION: Chest pain and abnormal labs COMPARISON: Most recent comparison chest x-rays dated October 21, 2016 TECHNIQUE: Single AP portable view of the chest was obtained. FINDINGS: Image quality is compromised due to the relative inferiority of a portable chest x-ray. The heart and mediastinum exhibit normal size and contour. There is faint linear density at the left lung base that appear stable compared to the previous chest x-ray. Otherwise the lungs are grossly clear. There is no evidence of a large pleural effusion. Visualized bones are normal for the patient's age. IMPRESSION: Stable linear density at the left lung base could represent atelectasis or scarring in this otherwise nonacute portable chest x-ray.
[2017-10-11] MEDS ORDERED: Acetaminophen TAB* 325 MG PO PRN (14:37)
[2017-10-11 15:27] LABS: Urine Appearance Cloudy; Urine Blood Negative (Negative); Urine Color Yellow; Urine Ketones Negative (Negative); Urine Protein Negative (Negative); Urine Specific Gravity 1.004 (1.010-1.030); Urine Urobilinogen Negative (Negative)
--- NOTE | 2017-10-11 15:37 | ED ---
Bridgette Lai Gabriel, scribed for Jeremiah Alfredo MD on 10/11/17 at 1206 . HPI Chest Pain - HPI Summary HPI Summary: This patient is a 67 year old M presenting to [facility] accompanied by his with a chief complaint of CP since yesterday at 1630. The pt also experience a similar pain this morning when he woke up this morning, both times he took ASA on onset. He saw his PCP who referred him here for blood work. The patient rates the pain 0/10 in severity currently. Patient reports increased belching and increase stress. Patient denies SOB, nausea, diaphoresis, edema, calf pain, and radiation into his arms. He states that when the pain comes it lasts 30 seconds is 3/10 and sharp. Hx GERD and HTN. - History of Current Complaint Chief Complaint: EDChestPainROMI Time Seen by Provider: 10/11/17 11:52 Hx Obtained From: Patient Onset/Duration: Still Present Time of Onset: 16:30 Timing: Intermittent, Lasting Seconds - 15-30 Initial Severity: Mild Current Severity: None Pain Intensity: 0 Pain Scale Used: 0-10 Numeric Chest Pain Location: Diffuse Chest Pain Radiates: No Associated Signs and Symptoms: Positive: Negative - SOB, nausea, diaphoresis, edema, calf pain, and radiation into his arms., Other: - increased belching, increase stress, - Allergy/Home Medications Allergies/Adverse Reactions: Allergies Allergy/AdvReac Type Severity Reaction Status Date / Time No Known Allergies Allergy Verified 10/10/16 10:44 Home Medications: Home Medications Metoprolol Succinate 1 tab PO DAILY 10/11/17 [History Confirmed 10/11/17] PMH/Surg Hx/FS Hx/Imm Hx Endocrine/Hematology History: Denies: Hx Anticoagulant Therapy, Hx Diabetes, Hx Thyroid Disease Cardiovascular History: Reports: Hx Hypertension - ON MEDICATION FOR Denies: Hx Congestive Heart Failure, Hx Deep Vein Thrombosis, Hx Myocardial Infarction, Hx Pacemaker/ICD Respiratory History: Reports: Hx Sleep Apnea Denies: Hx Asthma, Hx Chronic Obstructive Pulmonary Disease (COPD), Hx Lung Cancer, Hx Pneumonia, Hx Pulmonary Embolism GI History: Reports: Hx Gastroesophageal Reflux Disease - RAISES HEAD OF BED WHICH HELPS PER PATIENT, Hx Hiatal Hernia Denies: Hx Gall Bladder Disease, Hx Gastrointestinal Bleed, Hx Ulcer, Hx Urosepsis History: Reports: Hx Kidney Stones - CURRENTLY Denies: Hx Renal Disease Sensory History: Reports: Hx Contacts or Glasses - GLASSES Denies: Hx Hearing Aid Opthamlomology History: Reports: Hx Contacts or Glasses - GLASSES Neurological History: Denies: Hx Dementia, Hx Migraine, Hx Seizures, Hx Transient Ischemic Attacks (TIA) Psychiatric History: Reports: Hx Anxiety - NO MEDICATION FOR Denies: Hx Depression, Hx Schizophrenia, Hx Bipolar Disorder - Surgical History Surgery Procedure, Year, and Place: 2012 - CATARACT REMOVED AND THEN RETINA RUPTURED. SURGERY FOR RETINA REPAIR-[facility]. CERVICAL NECK SURGERY-[place]-8-10 YEARS AGO Hx Anesthesia Reactions: No Infectious Disease History: No Infectious Disease History: Denies: Hx Hepatitis, Hx Human Immunodeficiency Virus (HIV), Traveled Outside the [place] in Last 30 Days - Family History Known Family History: Positive: Hypertension - Social History Alcohol Use: None Substance Use Type: Reports: None Smoking Status (MU): Never Smoked Tobacco Review of Systems Negative: Skin Diaphoresis Positive: Chest Pain Negative: Shortness Of Breath Gastrointestinal: Other - belching Negative: Nausea Musculoskeletal: Negative - calf pain Negative: Edema Positive: Other - stress All Other Systems Reviewed And Are Negative: Yes Physical Exam - Summary Physical Exam Summary: General: well-appearing, no pain distress Skin: warm, color reflects adequate perfusion, dry Head: normal Eyes: EOMI, JESICA ENT: normal Neck: supple, nontender Respiratory: CTA, breath sounds present Cardiovascular: RRR Abdomen: soft, nontender Bowel: present Musculoskeletal: normal, strength/ROM intact Neurological: normal, sensory/motor intact, A&O x3 Psychological: affect/mood appropriate Triage Information Reviewed: Yes Vital Signs On Initial Exam: Initial Vitals Temp Pulse Resp BP Pulse Ox 98.4 F 63 18 149/87 96 10/11/17 11:31 10/11/17 11:31 10/11/17 11:31 10/11/17 11:31 10/11/17 11:31 Vital Signs Reviewed: Yes Diagnostics - Vital Signs Vital Signs Temp Pulse Resp BP Pulse Ox 10/11/17 11:31 98.4 F 63 18 149/87 96 - Laboratory Lab Results: Lab Results 10/11/17 10/11/17 10/11/17 Range/Units 12:16 12:16 12:16 WBC 6.3 (3.5-10.8) 10^3/ul RBC 4.68 (4.0-5.4) 10^6/ul Hgb 15.1 (14.0-18.0) g/dl Hct 44 (42-52) % MCV 94 (80-94) fL MCH 32 H (27-31) pg MCHC 35 (31-36) g/dl RDW 13 (10.5-15) % Plt Count 186 (150-450) 10^3/ul MPV 8.6 (7.4-10.4) um3 Neut % (Auto) 70.9 (38-83) % Lymph % (Auto) 18.1 L (25-47) % Brooke % (Auto) 8.6 H (0-7) % Eos % (Auto) 1.9 (0-6) % Baso % (Auto) 0.5 (0-2) % Absolute Neuts (auto) 4.5 (1.5-7.7) 10^3/ul Absolute Lymphs (auto) 1.1 (1.0-4.8) 10^3/ul Absolute Monos (auto) 0.5 (0-0.8) 10^3/ul Absolute Eos (auto) 0.1 (0-0.6) 10^3/ul Absolute Basos (auto) 0 (0-0.2) 10^3/ul Absolute Nucleated RBC 0 10^3/ul Nucleated RBC % 0.1 INR (Anticoag Therapy) 0.92 (0.77-1.02) APTT 31.1 (26.0-36.3) seconds D-Dimer, Quantitative < 200 (Less Than 230) ng/mL Sodium (139-145) mmol/L Potassium (3.5-5.0) mmol/L Chloride (101-111) mmol/L Carbon Dioxide (22-32) mmol/L Anion Gap (2-11) mmol/L BUN (6-24) mg/dL Creatinine (0.67-1.17) mg/dL Est GFR ( Amer) (>60) Est GFR (Non-Af Amer) (>60) BUN/Creatinine Ratio (8-20) Glucose (70-100) mg/dL Lactic Acid (0.5-2.0) mmol/L Calcium (8.6-10.3) mg/dL Magnesium (1.9-2.7) mg/dL Total Bilirubin (0.2-1.0) mg/dL AST (13-39) U/L ALT (7-52) U/L Alkaline Phosphatase (34-104) U/L Total Creatine Kinase (10-223) U/L Troponin I (<0.04) ng/mL C-Reactive Protein (< 5.00) mg/L B-Natriuretic Peptide 19 ( - 100) pg/mL Total Protein (6.4-8.9) g/dL Albumin (3.2-5.2) g/dL Globulin (2-4) g/dL Albumin/Globulin Ratio (1-3) Lipase (11.0-82.0) U/L TSH (0.34-5.60) mcIU/mL 10/11/17 10/11/17 Range/Units 12:16 12:16 WBC (3.5-10.8) 10^3/ul RBC (4.0-5.4) 10^6/ul Hgb (14.0-18.0) g/dl Hct (42-52) % MCV (80-94) fL MCH (27-31) pg MCHC (31-36) g/dl RDW (10.5-15) % Plt Count (150-450) 10^3/ul MPV (7.4-10.4) um3 Neut % (Auto) (38-83) % Lymph % (Auto) (25-47) % Brooke % (Auto) (0-7) % Eos % (Auto) (0-6) % Baso % (Auto) (0-2) % Absolute Neuts (auto) (1.5-7.7) 10^3/ul Absolute Lymphs (auto) (1.0-4.8) 10^3/ul Absolute Monos (auto) (0-0.8) 10^3/ul Absolute Eos (auto) (0-0.6) 10^3/ul Absolute Basos (auto) (0-0.2) 10^3/ul Absolute Nucleated RBC 10^3/ul Nucleated RBC % INR (Anticoag Therapy) (0.77-1.02) APTT (26.0-36.3) seconds D-Dimer, Quantitative (Less Than 230) ng/mL Sodium 139 (139-145) mmol/L Potassium 3.9 (3.5-5.0) mmol/L Chloride 103 (101-111) mmol/L Carbon Dioxide 27 (22-32) mmol/L Anion Gap 9 (2-11) mmol/L BUN 16 (6-24) mg/dL Creatinine 0.95 (0.67-1.17) mg/dL Est GFR ( Amer) 102.3 (>60) Est GFR (Non-Af Amer) 79.6 (>60) BUN/Creatinine Ratio 16.8 (8-20) Glucose 92 (70-100) mg/dL Lactic Acid 1.1 (0.5-2.0) mmol/L Calcium 9.9 (8.6-10.3) mg/dL Magnesium 2.0 (1.9-2.7) mg/dL Total Bilirubin 0.60 (0.2-1.0) mg/dL AST 19 (13-39) U/L ALT 23 (7-52) U/L Alkaline Phosphatase 63 (34-104) U/L Total Creatine Kinase 74 (10-223) U/L Troponin I 0.00 (<0.04) ng/mL C-Reactive Protein < 1.00 (< 5.00) mg/L B-Natriuretic Peptide ( - 100) pg/mL Total Protein 6.9 (6.4-8.9) g/dL Albumin 4.1 (3.2-5.2) g/dL Globulin 2.8 (2-4) g/dL Albumin/Globulin Ratio 1.5 (1-3) Lipase 46 (11.0-82.0) U/L TSH 1.56 (0.34-5.60) mcIU/mL Result Diagrams: 10/11/17 12:16 10/11/17 12:16 Lab Statement: Any lab studies that have been ordered have been reviewed, and results considered in the medical decision making process. - Radiology CXR Radiology Interpretation Completed By: Radiologist - Stable linear density at the left lung base could represent atelectasis or scarring in this otherwise nonacute portable chest x-ray. ED physician has reviewed this report. - EKG 1146 Cardiac Rate: Bradycardia EKG Rhythm: Sinus Bradycardia - at [address] Segment: Normal Ectopy: None Re-Evaluation - Re-Evaluation First Eval Re-Evaluation Time: 13:21 Change: Worse Comment: Pt had another episode of CP while in the ED. Chest Pain Course/Dx - Course Course Of Treatment: WELL IN ED. DID HAVE ONE EPISODE OF CHEST PAIN IN ED. DISCUSSED RESULTS WITH PATIENT AND HIS . ADMIT HOSPITALIST. Assessment/Plan: Medications reviewed. BP noted and advised to follow up with PCP. - Diagnoses Provider Diagnoses: Chest pain - Provider Notifications Discussed Care Of Patient With: Darrin Welsh Time Discussed With Above Provider: 13:22 Instructed by Provider To: Admit As Inpatient Discharge - Sign-Out/Discharge Documenting (check all that apply): Discharge - ADMIT HOSPITALIST - Discharge Plan Condition: Good Disposition: ADMITTED TO [facility] - Billing Disposition and Condition Condition: GOOD [place] [place] The documentation as recorded by the Bridgette motta Gabriel accurately reflects the service I personally performed and the decisions made by me, Jeremiah Alfredo MD.
[2017-10-11] MEDS: Heparin VIAL(*) 5000 UNITS/ML VIAL (FIVE THOUSAND) SUBCUT SCH (21:45)
[2017-10-12] MEDS: Heparin VIAL(*) 5000 UNITS/ML VIAL (FIVE THOUSAND) SUBCUT SCH ×2 (05:38→14:15)
[2017-10-12 05:48] LABS: ABS Basophils 0 10^3/ul (0-0.2); ABS Eosinophils 0.2 10^3/ul (0-0.6); ABS Lymphocytes 1.8 10^3/ul (1.0-4.8); ABS Monocytes 0.6 10^3/ul (0-0.8); ABS Neutrophils 4.5 10^3/ul (1.5-7.7); ABS Nucleated RBC 0 10^3/ul; Eosinophil % 2.6 % (0-6); Hematocrit 43 % (42-52); Hemoglobin 15.1 g/dl (14.0-18.0); Lymphocyte % 25.6 % (25-47); Mean Corpuscular HGB Conc 35 g/dl (31-36); Mean Corpuscular Hemoglobin 33 pg (27-31); Mean Corpuscular Volume 94 fL (80-94); Nucleated Red Blood Cells % 0; Platelet Count 183 10^3/ul (150-450); Red Blood Count 4.58 10^6/ul (4.0-5.4); Red Cell Distribution Width 14 % (10.5-15); White Blood Count 7.2 10^3/ul (3.5-10.8)
[2017-10-12 06:08] LABS: EGFR Non-African American 72.5 (>60)
[2017-10-12] MEDS ORDERED: Valsartan TAB* 160 MG PO SCH ×3 (09:00→10:10)
[2017-10-12] MEDS ORDERED: Hydrochlorothiazide TAB* 25 MG PO SCH (09:00)
[2017-10-12] MEDS ORDERED: Allopurinol TAB* 100 MG PO SCH (09:00)
[2017-10-12] MEDS ORDERED: Metoprolol Succinate XL TAB* 100 MG PO SCH (09:00)
[2017-10-12] MEDS ORDERED: Aspirin 81 mg CHEW TAB* 81 MG TAB.CHEW PO SCH (09:00)
--- NOTE | 2017-10-12 12:12 | RAD ---
Edited for charges. INDICATION: Chest pain COMPARISON: None TECHNIQUE: A single day SPECT protocol was utilized. Rest images were acquired following the intravenous injection of 10.5 millicuries of technetium 99m tetrofosmin. Exercise stress images were acquired following the intravenous administration of 24.2 millicuries of technetium 99m tetrofosmin. The patient was exercised to a peak heart rate of 164 which is greater than 100 % of age predicted maximum. FINDINGS: There is diaphragmatic attenuation. There are no defects of the stress-induced or fixed nature. The cardiac chamber size is normal. There are no wall motion abnormalities. The ejection fraction is calculated at 75 percent during stress. IMPRESSION: DIAPHRAGMATIC ATTENUATION. NO EVIDENCE OF INFARCT OR STRESS- INDUCED ISCHEMIA. ASSESSMENT: LOW-RISK Based on imaging criteria from ACC/AHA 2002 Guideline Update for the Management of Patients With Chronic Stable Angina Table 23. Noninvasive Risk Stratification. MTDD
[2017-10-12 12:43] VITALS: BP 124/90
--- NOTE | 2017-10-12 13:24 | HP ---
CC: Dr. Polk * HISTORY AND PHYSICAL: DATE OF ADMISSION: 10/11/17 PRIMARY CARE PROVIDER: Dr. Polk. ATTENDING PHYSICIAN WHILE IN THE HOSPITAL: Norma Dai DO * (report dictated by Darrin Welsh NP). CHIEF COMPLAINT: Chest pain. HISTORY OF PRESENT ILLNESS: Mr. Woodard is a 67-year-old male patient carrying a history of hypertension and gout, who comes in today. He says he has been having intermittent chest discomfort on the left side, described as a sharp stabbing pain that lasts minutes at a time, it is nonexertional. He said the pain started last night, it has been intermittent. He said he had no associated nausea, diaphoresis or shortness of breath. He says the discomfort just kept getting worse, but he was able to sleep. He took some aspirin and the aspirin actually made the pain go away. He woke up again this morning, he continued to have the discomfort. He states to his knowledge it did not get any worse or better with position change. It did not get any worse with eating food. He says that the discomfort was concerning because it was still happening intermittently. He called his primary. His primary referred him to the hospital today for evaluation. The patient denies having any recent fevers. He does state that he has been having some rhinorrhea for the last several weeks. He denies having any pain with taking a deep breath and he denies being able to reproduce the pain. He also denies having any skin lesions over the left chest wall. He came in to the ED today. He was evaluated. There was concern for the chest pain, so we were asked to evaluate for admission. PAST MEDICAL HISTORY: Significant for: 1. Gout. 2. Hypertension. PAST SURGICAL HISTORY: 1. He has had cervical spine surgery. 2. He has had tonsillectomy. 3. He has had a lithotripsy. MEDICATIONS: Home medications include: 1. Valsartan/hydrochlorothiazide 1 tablet p.o. daily. 2. Allopurinol 1 tablet daily. 3. Metoprolol succinate 1 tablet daily. ALLERGIES TO MEDICATIONS: Include no known drug allergies. FAMILY HISTORY: His mother of leukemia. His father is 88, and still healthy according to the patient. SOCIAL HISTORY: He does not smoke. He does not drink. Surrogate decision maker is his , Erum. REVIEW OF SYSTEMS: There is no documented fever. He denied having any significant weight change. There was no double vision. He denies having any ear discharge. There was no rhinorrhea. There was no sore throat. No thyroid enlargement. There was chest pain per my HPI. There was no orthopnea. No nocturnal dyspnea. There was no abdominal pain. There was no nausea. No vomiting. No dysuria. No frequency. There was no seizure. There was no loss of consciousness. No pruritus and no skin ulcerations. Review of 14 systems was completed, all others negative. PHYSICAL EXAMINATION GENERAL: At this time, Mr. Woodard is a 67-year-old male patient. He appears to be well nourished, well developed. He is sitting in the ED stretcher. He does not appear to be in any acute distress. VITAL SIGNS: Blood pressure 123/75, pulse 50, respirations 18, O2 sat 97%, temperature 98.4. HEENT: Head: Atraumatic, normocephalic. Eyes: EOMs are intact. Sclerae anicteric and not pale. Throat: Oral mucosa appears to be moist. No oropharyngeal erythema. NECK: Supple. LUNGS: Clear to auscultation bilaterally. No wheezes, rales, or rhonchi. HEART: Sounds S1, S2. Regular rate and rhythm. No murmurs, rubs, or gallops. ABDOMEN: Soft, flat, and nontender. Bowel sounds are present. EXTREMITIES: Pulses are 2+ throughout. He is moving all 4 extremities with 5/ 5 strength. NEUROLOGICAL: He is awake, alert, and oriented x3. Tongue is midline. Talk Show Host are equal. No gross focal deficits. SKIN: Intact. DIAGNOSTIC STUDIES/LAB DATA: WBC of 6.3, RBC of 4.6, hemoglobin 15.1, hematocrit of 44, platelet count of 186,000. INR was 0.92. PTT of 31.1. D- dimer was less than 200. Sodium 139, potassium 3.9, chloride 103, bicarb 27, BUN 16, creatinine 0.95, glucose was 92, lactic 1.1, calcium 9.9, mag 2.0, total bili 0.6, AST 19, ALT 23, alk phos 63. CK is 74. Troponin 0. CRP less than 1. BNP 19. TSH was normal. Lipase normal. He did have a chest x-ray obtained today, impression: Stable linear density at the left lung base could represent atelectasis or scarring. He had an EKG obtained today as well, showing sinus bradycardia with rate of 57. No ST elevations or T-wave inversions. No previous EKGs for comparison. Old medical records were reviewed. ASSESSMENT AND PLAN: Mr. Woodard is a 67-year-old male patient coming in to the ED today with complaints of chest pain. We were asked to evaluate for admission. He will be admitted under observation status for: 1. Chest pain. The pain is atypical. However, he does have risk factors being hypertension. My plan at this point, as D-dimer was negative, I will cycle his troponins, order a stress test for tomorrow, a treadmill stress test and we will continue to follow him, place him on telemetry, start him on baby aspirin. He is on a beta-gelacio already. We will check lipids and A1c in the morning and we will continue to monitor. 2. Gout. Continue meds as prescribed. 3. Hypertension. Continue meds as prescribed. He appears to be stable. 4. Code status. Full code. 5. Fluids, electrolytes, and nutrition. He can have a heart healthy diet and he will be n.p.o. after midnight. 6. DVT prophylaxis. He will be placed on heparin subcu. TIME SPENT: On the admission was 60 minutes, greater than half of the time spent [id number] with the patient obtaining my history and physical, other half of the time was spent going over the plan of care with the patient and implementing the plan of care. I did discuss the plan of care with my attending, Dr. Dai, she is in agreement. DARRIN WELSH, EDEL [id number]/[facility] #: [id number] [place]
--- NOTE | 2017-10-13 14:54 | DS ---
DISCHARGE SUMMARY: DATE OF ADMISSION: 10/11/17 DATE OF DISCHARGE: 10/12/17 ADMITTING PROVIDER: Darrin Welsh NP. ATTENDING PHYSICIAN: Steve Landon MD. PRIMARY CARE PHYSICIAN: Dr. Polk. CHIEF COMPLAINT: Sharp, stabbing left-sided chest pain. PRINCIPAL DIAGNOSIS: Acute coronary syndrome ruled out; chest pain, atypical. HISTORY OF PRESENT ILLNESS AND HOSPITAL COURSE: Moises Woodard is a 67-year- old male with past medical history of hypertension, gout, who reported acid reflux-like symptoms and reports a history of hiatal hernia, although not seen on recent CT abdomen and pelvis, noncontrast, from 10/07/16. Please see H and P by Darrin Welsh for full details. He described pain that was intermittent, sharp, stabbing to his left lateral chest wall, initially associated with some belching. He took some aspirin and it resolved, but he woke up again on the morning of admission with the same complaint. He presented to Dr. Polk who referred him for ED evaluation. He is admitted for ACS rule out. He had troponins that were negative x3 - 0.0, 0.0, and 0.0. He had a low risk nuclear stress test, EF of 75%. There was no evidence of infarct or stress-induced ischemia. His EKG demonstrated some sinus bradycardia, heart rate of 57. No ST elevations or depressions. No T wave inversions. He reports that has, what he says is, a history of a hiatal hernia though this was not seen on September 2016 study, and reports sometimes gets GERD, sometimes has vomitus in his mouth, and usually sleeps up slightly inclined at night. He was recommended to be evaluated by GI for potential GERD and/or hiatal hernia. DISCHARGE MEDICATIONS: Include: 1. Allopurinol 100 mg p.o. 1 tab daily. 2. Metoprolol succinate 100 mg p.o. daily. 3. Valsartan/hydrochlorothiazide 160/12.5 mg (Diovan) daily. DIET: Heart healthy. ACTIVITY LEVEL: No restrictions. FOLLOWUP: Please follow up with Dr. Polk within 5 days of discharge. He should also consider followup with the GI physician or consider trial of a PPI if atypical chest pain symptoms return. TIME SPENT ON DISCHARGE: 35 minutes. [id number]/[facility] #: [id number] [place]
== END 2017-10-12 14:50 | disposition home or self-care (01) ==
LOC: ED 11:17 → MEDTELE 14:33
PROVIDERS: ADMIT Hospitalist; ATTEND Internal Medicine
DX: R07.89 Other chest pain (principal); I10 Essential (primary) hypertension; M10.9 Gout, unspecified; K21.9 Gastro-esophageal reflux disease without esophagitis; Z79.899 Other long term (current) drug therapy; R00.1 Bradycardia, unspecified
CPT/HCPCS: 36415; 71045; 78452; 80048; 80053; 80061; 81003; 82550; 83036; 83605; 83690; 83735; 83880; 84443; 84484; 85025; 85379; 85610; 85730; 86140; 93005; 93017; 96372; 99284; A9270-GY; A9502; G0378; J1644